=== PATIENT | male | born 1940 | race Caucasian/White ===

== ENCOUNTER 2016-05-05 14:04 | Emergency (ER) | payer BC ==
[~2016-05-05] VITALS: Ht 167.6 cm; Wt 54.0 kg
--- NOTE | 2016-05-05 14:10 | NUR ---
PT BIBA TO BED 2 AT THIS TIME
[2016-05-05 14:15] VITALS: BP 129/83
--- NOTE | 2016-05-05 14:28 | NUR ---
PATIENT CAME FROM [facility] WITH COLS SYMPTOM,CHEST PRESSURE /ABD. PAIN AND LT. SHOULDER PAIN.ASPIRIN 162 MG. PO GIVEN TRANSPORTATION LEAD WITH RELIEF.EKG DONE IN CLINIC AND FIELD. REVIEWED BY JOSE A. HX: COPD,ANXIETY.NO PAIN AT THIS TIME, DENIES N/V/D; SKIN IS PINK/WARM/DRY; AAOX4, LUNGS CLEAR BL; HR EVEN AND REGULAR; PT DENIES ANY FEVER, CP, SOB, OR COUGH AT THIS TIME; PATIENT STATES PAIN OF 0/10 AT THIS TIME; VSS; PATIENT POSITIONED FOR COMFORT; HOB ELEVATED; BEDRAILS UP X2; BED DOWN. ER MD MADE AWARE OF PT STATUS.
[2016-05-05] MEDS ORDERED: ACETAMINOPHEN EXTRA STRENGTH 500 MG TAB ONE (15:32)
[2016-05-05 16:11] VITALS: BP 138/85
--- NOTE | 2016-05-05 16:11 | NUR ---
Patient discharged with v/s stable. Written and verbal after care instructions given and explained. Patient alert, oriented and verbalized understanding of instructions. Ambulatory with steady gait. All questions addressed prior to discharge. ID band removed. Patient advised to follow up with PMD. Rx of TAMIFLU, ZOFRAN, PREDNISONE given. Patient educated on indication of medication including possible reaction and side effects. Opportunity to ask questions provided and answered.
== END 2016-05-05 16:11 | disposition home or self-care (01) ==
LOC: MED 14:04
PROC: 4A02X4Z Measurement of Cardiac Electrical Activity, External Approach (ICD-10-PCS; principal; 2016-05-05)
DX: J11.1 Influenza due to unidentified influenza virus with other respiratory manifestations (principal); J45.909 Unspecified asthma, uncomplicated; R03.0 Elevated blood-pressure reading, without diagnosis of hypertension
CPT/HCPCS: 36415; 71010; 87804; 93005; 99285; Q0092